=== PATIENT | female | born 1985 | race African-American/Black ===

== ENCOUNTER 2023-11-13 09:24 | Emergency (ER) | payer MEDICAID, OTHER ==
[~2023-11-13] VITALS: Ht 154.9 cm; Wt 64.4 kg
[2023-11-13 09:26] VITALS: O2SAT 100
[2023-11-13 10:04] LABS: BASOPHILS % 0.5 % (0.0-2.0); HEMATOCRIT. 36.7 % (36.0-48.0); LYMPHOCYTES % 24.8 % (20.0-50.0); MEAN CORPUSCULAR HEMOGLOBIN 30.5 pg (28.0-32.0); MEAN CORPUSCULAR HGB CONC 32.7 g/dL (31.0-37.0); MEAN CORPUSCULAR VOLUME 93.1 fL (81.0-99.0); MEAN PLATELET VOLUME 8.5 fl (7.4-10.4); MONOCYTES % 4.7 % (2.0-8.0); PLATELET 281 x1000/uL (130-400); RED BLOOD CELL COUNT 3.95 mill/uL (4.2-5.4); RED CELL DISTRIBUTION WIDTH 14.7 % (11.6-14.6); WHITE BLOOD COUNT 10.5 x1000/uL (4.5-11.0)
[2023-11-13 10:06] LABS: CLARITY URINE CLEAR (CLEAR); COLOR URINE YELLOW (YELLOW); GLUCOSE URINE NEGATIVE (NEGATIVE); KETONES URINE TRACE (NEGATIVE); LEUKOCYTE ESTERASE URINE 1+ (NEGATIVE); NITRITE URINE NEGATIVE (NEGATIVE); OCCULT BLOOD URINE 3+ (NEGATIVE); PROTEIN URINE 1+ (NEGATIVE); SPECIFIC GRAVITY URINE 1.024 (1.005-1.030)
[2023-11-13 10:16] LABS: HCG SCREEN POSITIVE
[2023-11-13 10:18] LABS: CHLORIDE 109 mEq/L (98-107); POTASSIUM 3.5 mEq/L (3.5-5.1); SODIUM 138 mEq/L (136-145)
[2023-11-13 10:19] LABS: CALCIUM 9.4 mg/dL (8.7-10.4); CARBON DIOXIDE 26 mEq/L (21-32)
[2023-11-13 10:24] LABS: CREATININE 0.6 mg/dL (0.6-1.0); GLUCOSE 78 mg/dL (70-105)
[2023-11-13 10:36] LABS: SQUAMOUS EPITHELIAL CELL URINE 2+ /lpf (RARE/1+)
[2023-11-13 10:37] LABS: BACTERIA URINE TRACE; MUCUS URINE TRACE /lpf (< = 2+); RBC URINE 25-50 /hpf (0-2)
[2023-11-13 10:38] LABS: TRICHOMONAS URINE 1+
[2023-11-13 10:40] LABS: UREA NITROGEN BLOOD < 5 mg/dL (9-23)
[2023-11-13 12:31] VITALS: BP 138/78; PULSE 76; RESP 18; TEMP 36.94740; O2SAT 99
== END 2023-11-13 12:37 | disposition home or self-care (01) ==
LOC: ER 09:24
DX: O46.91 Antepartum hemorrhage, unspecified, first trimester (principal); Z3A.11 11 weeks gestation of pregnancy
CPT/HCPCS: 36415; 76830; 76856; 80048; 81003; 84702; 84703; 85025; 86850; 86900; 99284

== ENCOUNTER 2024-02-12 23:46 | Emergency (ER) | payer OTHER ==
[~2024-02-12] VITALS: Ht 170.2 cm; Wt 74.5 kg
[2024-02-12 23:50] VITALS: O2SAT 98
[2024-02-13 00:21] LABS: BASOPHILS % 0.4 % (0.0-2.0); EOSINOPHILS % 0.2 % (0.0-5.0); HEMATOCRIT. 31.8 % (36.0-48.0); HEMOGLOBIN. 10.7 g/dL (12.0-16.0); LYMPHOCYTES % 17.2 % (20.0-50.0); MEAN CORPUSCULAR HEMOGLOBIN 30.8 pg (28.0-32.0); MEAN CORPUSCULAR HGB CONC 33.7 g/dL (31.0-37.0); MEAN CORPUSCULAR VOLUME 91.3 fL (81.0-99.0); MEAN PLATELET VOLUME 8.5 fl (7.4-10.4); MONOCYTES % 3.4 % (2.0-8.0); NEUTROPHILS % 78.8 % (40.0-76.0); PLATELET 341 x1000/uL (130-400); RED BLOOD CELL COUNT 3.48 mill/uL (4.2-5.4); RED CELL DISTRIBUTION WIDTH 14.6 % (11.6-14.6); WHITE BLOOD COUNT 17.6 x1000/uL (4.5-11.0)
[2024-02-13 00:49] LABS: CHLORIDE 109 mEq/L (98-107); POTASSIUM 3.4 mEq/L (3.5-5.1); SODIUM 138 mEq/L (136-145)
[2024-02-13 00:50] LABS: CALCIUM 8.7 mg/dL (8.7-10.4); CARBON DIOXIDE 21 mEq/L (21-32)
[2024-02-13 00:55] LABS: CREATININE 0.7 mg/dL (0.6-1.0); GLUCOSE 150 mg/dL (70-105); UREA NITROGEN BLOOD 5 mg/dL (9-23)
[2024-02-13] MEDS: SODIUM CHLORIDE 0.9% 1,000 ML IV ONE (02:45)
[2024-02-13] MEDS: ONDANSETRON HCL 4MG/2ML INJ IV STA (02:45)
[2024-02-13] MEDS: HYDROCODONE/ACETAMINOPHEN 5/325MG TABLET PO STA (02:45)
[2024-02-13 05:18] LABS: HCG SCREEN NEGATIVE
[2024-02-13] MEDS ORDERED: IBUP-2030 MT (06:56)
[2024-02-13] MEDS ORDERED: IOHEXOL-300 100 ML BOTTLE ONE (07:11)
[2024-02-13 07:15] VITALS: BP 110/83; PULSE 78; RESP 17; TEMP 36.94740; O2SAT 100
[2024-02-13] MEDS: HYDROCODONE/ACETAMINOPHEN 5/325MG TABLET PO ONE (07:15)
[2024-02-13] MEDS: KETOROLAC 30MG/ML VIAL IV ONE (07:15)
== END 2024-02-13 07:15 | disposition home or self-care (01) ==
LOC: ER 23:49
DX: N83.201 Unspecified ovarian cyst, right side (principal); N93.9 Abnormal uterine and vaginal bleeding, unspecified; R10.2 Pelvic and perineal pain
CPT/HCPCS: 99285; 36415; 74177; 96374; 76830; 76856; 96361; 96375; Q9967; J1885; J2405; J7030